=== PATIENT | female | born 1995 | race Two or more races ===

== ENCOUNTER 2024-10-13 12:12 | Outpatient (CLI) | payer OTHER | END 2024-10-13 12:16 | disposition home or self-care (01) | LOC: PRENATAL 12:12 | PROVIDERS: ATTEND Obstetrics & Gynecology Maternal & Fetal Medicine | DX: O44.00 Complete placenta previa NOS or without hemorrhage, unspecified trimester (principal); O28.3 Abnormal ultrasonic finding on antenatal screening of mother; Z3A.23 23 weeks gestation of pregnancy ==